=== PATIENT | male | born 1970 | race Caucasian/White ===

== ENCOUNTER 2019-09-21 15:49 | Emergency (ER) | payer OTHER, SELFPAY ==
[2019-09-21 15:50] VITALS: BP 138/78; PULSE 77; RESP 16; TEMP 36.6; O2SAT 97; BMI 43.3
--- NOTE | 2019-09-21 16:34 | EKG12_ITS ---
Test Reason : DIZZINESS Blood Pressure : / mmHG Vent. Rate : 065 BPM Atrial Rate : 065 BPM P-R Int : 148 ms QRS Dur : 094 ms QT Int : 354 ms P-R-T Axes : 021 -24 031 degrees QTc Int : 368 ms Normal sinus rhythm Moderate voltage criteria for LVH, may be normal variant Borderline ECG Confirmed by DAVID WEAVER, BRODERICK ([id number]), industrial editor TA WEAVER ([id number]) on 09/23/2019 2:47:23 PM Referred By: MEGAN Confirmed By:BRODERICK HERNANDEZ MD
--- NOTE | 2019-09-21 16:35 | CT_ITS ---
STUDY: CT BRAIN WITHOUT CONTRAST REASON FOR EXAM: Male, 48 years old. Dizziness RADIATION DOSAGE (If Supplied By Facility): CTDIvol = ( 44.99 ) mGy, DLP = ( 846.73 ) mGycm TECHNIQUE: Transaxial CT imaging of the brain was performed without administration of intravenous contrast material. Individualized dose optimization techniques were used for this CT. COMPARISON: No relevant priors. FINDINGS: Normal soft tissue structures. Normal calvarium. Normal size ventricles and extra-axial spaces for the patient's age. Normal white matter tracts of the cerebral hemispheres. Normal basal ganglia and thalami. Normal brainstem. Normal cerebellum. There is no intracranial hemorrhage. There are no findings of an acute ischemic infarction. Normal visualized paranasal sinuses. CT/Brain/Head without Contrast IMPRESSION: Normal unenhanced CT scan of the brain. Electronically Signed: Phillip Kowalski DO at 17:31 EST Tel , Service support ,
[2019-09-21 16:49] LABS: Absolute Lymphocyte Count 1.97 X10^3/uL (0.83-4.51); Absolute Neutrophil Count 4.8 X10^3/uL (2.0-7.7); Basophil# 0.03 X10^3/uL; Basophil% 0.4 % (0-1); Eosinophils% 1.3 % (0-5); Hematocrit 44.1 % (40-54); Hemoglobin 14.6 g/dL (13.0-16.5); Lymphocyte # 1.97 X10^3/ul (4.0); Lymphocyte % 25.5 % (19-41); Mean Corp Hgb Conc 33.1 g/dL (32-36); Mean Corpuscular Hgb 28.6 pg (27.0-32.0); Mean Corpuscular Volume 86.3 fL (80-94); Mean Platelet Vol. 9.3 fl (6.2-12.0); Monocyte# 0.79 X10^3/uL; Monocyte% 10.2 % (0-10); NRBC Flagged by Analyzer 0 % (0-5); Neutrophil # 4.83 X10^3/uL (2.7-7.7); Neutrophil % 62.3 % (47-70); Platelet Count 328 K/mm3 (150-450); RBC Distribution Width CV 13.2 % (11.6-14.6); RBC Distribution Width SD 41.2 fl (35.1-43.9); Red Blood Count 5.11 M/mm3 (4.6-6.2); White Blood Count 7.7 K/mm3 (4.4-11.0)
[2019-09-21 16:52] VITALS: BP 106/64; BP 114/77; BP 125/78; PULSE 66; PULSE 72; PULSE 77
[2019-09-21] MEDS: 0.9% Normal Saline 1,000 ML 150 ML IV (16:52)
[2019-09-21 17:11] LABS: Anion Gap 8 (5-15); BUN 13 mg/dL (7-18); BUN/Creat Ratio 17.5 RATIO (10-20); Calcium,Total 9.6 mg/dL (8.5-10.1); Chloride 104 mmol/L (98-107); Creatinine, Serum 0.74 mg/dL (0.70-1.30); EST Glomerular Filtration Rate 118 mL/min (>60); Est Glom Filt Rate - Afr Amer 143 mL/min (>60); Estimated Creatinine Clearance 111.66 ml/min; Glucose 90 mg/dL (74-106); Potassium 4.1 mmol/L (3.5-5.1); Sodium Level 141 mmol/L (136-145)
--- NOTE | 2019-09-21 17:26 | ED.VISSUMM ---
- ER Visit Summary Date of Service: 09/21/19 Chief Complaint: [Dizziness] History of Present Illness: The patient is a 48 M [presents to the emergency department complaint of feeling dizzy since early this morning. Patient states that he was light outside when he woke up to use the restroom and noted that he felt a little bit lightheaded. Patient denies vertiginous symptoms. He denies any headache. Patient is felt somewhat off and lightheaded since that time. He denies prior similar symptoms. He denies any chest pain or shortness of breath or palpitations. He denies any falls or head injuries. Patient does have history of diabetes and hypertension. He denies recent illness. He has had no vomiting or diarrhea. He denies any blood in stool or black tarry stool.] Physical Examination: [HEENT-PERRLA, EOMI. Cranial nerves II through XII grossly intact. TMs clear. Mucous membranes moist. No adenopathy. Cardiovascular-regular rate and rhythm without murmur or ectopy Lungs-clear to auscultation, chest wall stable without crepitus or subcu emphysema Abdomen-normoactive bowel sounds, soft, nontender, no rebound or rigidity, no peritoneal signs. Neuro oguv-endime-etky and bgul-zc-[id number] testing within normal limits, negative Romberg, negative pleasant, fundi benign Extremities-intact ?4, normal range of motion, normal pulses, atraumatic] Test Results: [EKG obtained on arrival shows sinus rhythm with a ventricular rate of 65 bpm with moderate voltage. LVH. CBC with differential is normal. Chemistries normal. Troponin is 11.15. Orthostatic vital signs were negative. CT scan of the brain without contrast was unremarkable.] Emergency Department Course and Treatment: [Patient had an IV line established and was treated with normal saline.] Treatment Plan: [5 to push fluids and follow-up with primary care physician within the next 3 to 5 days.] Disposition: [Discharged home in stable condition.] Impression: [Dizziness-etiology uncertain] This note was generated with [employer] dictation software. It may contain incorrect words, spelling, and punctuation that were not noted in review of the chart prior to signing ED Disposition - Plan for ED Patient: Referrals: Leonard Doan MD [Primary Care Provider] -
--- NOTE | 2019-09-21 17:29 | ED.DEP ---
ED Disposition - Plan for ED Patient: Instructions: DIZZINESS, Unk Cause Referrals: Leonard Doan MD [Primary Care Provider] - 3-5 Days
== END 2019-09-21 17:41 | disposition home or self-care (01) ==
LOC: ED 16:44
PROVIDERS: Emergency Provider Emergency Medicine; Family Provider Family Medicine; PCP Family Medicine
DX: R42 Dizziness and giddiness (principal); I10 Essential (primary) hypertension; E11.9 Type 2 diabetes mellitus without complications; F17.220 Nicotine dependence, chewing tobacco, uncomplicated; Z79.899 Other long term (current) drug therapy
CPT/HCPCS: 70450; 80048; 84484; 85025; 93005; 96360; 99285; J7030; A4216